=== PATIENT | female | born 1985 | race Caucasian/White ===

== ENCOUNTER → 2021-03-30 | Outpatient (CLI) | payer OTHER ==
--- NOTE | 2021-03-30 08:45 | REP ---
INDICATION: ABN UTERINE BLEEDING. COMPARISON: None. TECHNIQUE: Transvaginal pelvic sonography. FINDINGS: Uterus is somewhat heterogeneous measuring 9.2 x 4.6 x 5.9 cm. Question fibroid change, largest area 2.5 by 2.2 x 1.4 cm. There appears to be a small fibroid 1.5 cm in diameter as well. Endometrial echo is 0.6 cm thick. Right ovary measures 3.4 x 2.2 x 2.6 cm. It is Doppler flow is normal with resistive index 0.49. There is a complex cystic area in the right ovary consistent with a follicle cyst measuring 2.7 x 2.2 x 2.2 cm. The left ovary is normal measuring 3.2 x 2.2 x 2.5 cm. It is Doppler flow is normal with resistive index 0.65. No free fluid is seen. IMPRESSION: Question small uterine fibroids. 2.7 cm hypoechoic follicle cyst right ovary. <Electronically signed by Darwin Bolanos > 03/30/21 [id number]
== END ==
LOC: M RAD 07:28
PROVIDERS: ATTEND Obstetrics & Gynecology Gynecology
DX: N83.01 Follicular cyst of right ovary (principal); N93.9 Abnormal uterine and vaginal bleeding, unspecified